=== PATIENT | female | born 1935 | race Caucasian/White ===

== ENCOUNTER 2021-05-28 19:11 | Emergency (ER) | payer MEDICARE ==
[~2021-05-28] VITALS: Ht 147.3 cm; Wt 60.0 kg
[~2021-05-28 19:11] MED LIST: ESOM20CA PO; LEVO125T5 PO; LEVO88TA4 PO; MECL-75 PO; METO25TA4 PO; MOME17SP5 NS; POTA-112 PO; RIVA20TA2 PO; VENL75TA2 PO
--- NOTE | 2021-05-28 19:32 | PHYS DOC ---
Past Medical History Past Medical History: A-Fib, CVA, GERD, Hypothyroid Past Surgical History: Other Additional Past Surgical Histo: HIP AND KNEE Smoking Status: Never Smoker Alcohol Use: None General Adult EDM: Chief Complaint: HYPERTENSION HPI: HPI: Patient is a 86 year old female with history of atrial fibrillation on Xarelto with recent stroke with residual right-sided weakness who presents with concerns of hypertension. Earlier today at approximately 4 AM had a severe headache that woke her from sleep. The headache slowly resolved over several hours. During the course of the headache she had a sensation of room spinning that has also resolved. She currently has no symptoms. She was visited by physical therapy for stroke recovery and her blood pressure was noted to be 190s/110s and she was instructed to visit the emergency department. She denies any worsening of R sided weakness, vision changes, facial droop, coordination difficulty, or sensory changes. Denies any chest pain or shortness of breath. Review of Systems: Review of Systems: Constitutional: Denies fever or chills. [] Eyes: Denies change in visual acuity. [] HENT: Denies nasal congestion or sore throat. [] Respiratory: Denies cough or shortness of breath. [] Cardiovascular: Denies chest pain or edema. [] GI: Denies abdominal pain, nausea, vomiting, bloody stools or diarrhea. [] : Denies dysuria. [] Musculoskeletal: Denies back pain or joint pain. [] Integument: Denies rash. [] Neurologic: Reports now resolved headache and dizziness. Psychiatric: Denies depression or anxiety. [] Heart Score: C/O Chest Pain: No Risk Factors: Risk Factors: DM, Current or recent (<one month) smoker, HTN, HLP, family history of CAD, obesity. Risk Scores: Score 0 - 3: 2.5% MACE over next 6 weeks - Discharge Home Score 4 - 6: 20.3% MACE over next 6 weeks - Admit for Clinical Observation Score 7 - 10: 72.7% MACE over next 6 weeks - Early Invasive Strategies Allergies: Allergies: Allergies Coded Allergies Type Severity Reaction Last Updated Verified rosuvastatin Allergy Unknown 04/18/21 Yes Physical Exam: PE: Constitutional: Well developed, well nourished, no acute distress, non-toxic appearance. [] HENT: Normocephalic, atraumatic, bilateral external ears normal, oropharynx moist, no oral exudates, nose normal. [] Eyes: PERRLA, EOMI, conjunctiva normal, no discharge. [] Neck: Normal range of motion, no tenderness, supple, no stridor. [] Cardiovascular:Heart rate regular rhythm, no murmur [] Lungs & Thorax: Bilateral breath sounds clear to auscultation [] Abdomen: Bowel sounds normal, soft, no tenderness, no masses, no pulsatile masses. [] Skin: Warm, dry, no erythema, no rash. [] Back: No tenderness, no CVA tenderness. [] Extremities: No tenderness, no cyanosis, no clubbing, ROM intact, no edema. [] Neurologic: Alert, oriented to person, place, time. Face is symmetric. Speech is normal. Cranial nerves III-XII intact. EOMI. Eyes easily cross midline. Visual glasgow intact. Very slight drift in the right upper extremity, no drift in left upper extremity. (Patient states this is her recent baseline) No drift in bilateral lower extremities No dysmetria with [id number] or [id number] testing. No dysarthria or aphasia Sensation equal bilaterally. No inattention or neglect Psychologic: Affect normal, judgement normal, mood normal. [] EKG: EKG: Sinus rhythm with PVCs. Rate 73. Normal OR and QRS intervals. QTc 429. No acute ischemic changes. [] Radiology/Procedures: Radiology/Procedures: [] Impression: [facility] [address] [place], [place] [id number] IMAGING REPORT Signed PATIENT: SANGITA RICARDO ACCOUNT: [id number] : 1935 LOCATION: ER AGE: 86 SEX: F EXAM STATUS: REG ER ORD. PHYSICIAN: SEAN DAVID MD REASON: HTN, headache, dizziness, on xarelto PROCEDURE: CT HEAD WO CONTRAST CT head without contrast PQRS statement: CT scans at this facility use dose reduction including either automated exposure control, iterative reconstructions, and /or weight based radiation dosing via mA and kV modification when appropriate to reduce radiation dose to as low as reasonably achievable. HISTORY: Hypertension, headache, dizziness, anticoagulated. COMPARISON: CT head April 18, 2021 FINDINGS: Mild streak artifact from the skull base across the tera and brainstem decreasing sensitivity is intact subtle abnormalities at this region. There is a chronic right basal ganglia lacunar ischemic infarct which is stable. Periventricular white matter hypoattenuating lesions similar to prior imaging likely sequela of chronic microvascular ischemic disease, although there is a possible new left frontal 8 mm white matter lesion on image 19 not apparent on the prior CT study. No intracranial hemorrhage, mass or hydrocephalus. Orbits, mastoids and bones are unremarkable. Sphenoid sinus fluid. IMPRESSION: 1. No intracranial hemorrhage, mass or hydrocephalus. 2. Subcentimeter hypoattenuating lesion of the left frontal periventricular white matter, not apparent on prior imaging from March 2021, could represent an acute or subacute small vessel ischemic infarct of the white matter. Acuity versus chronicity of this could be further assessed with MR imaging. 3. Chronic right basal ganglia infarct is stable. 4. Small volume of fluid within the right sphenoid sinus could represent sinusitis. Electronically signed by: Kana Dominique MD (05/28/2021 8:34 PM) [facility] DICTATED and SIGNED BY: KANA DOMINIQUE MD DATE: 05/28/[id number] 0 Course & Med Decision Making: Course & Med Decision Making Pertinent Labs and Imaging studies reviewed. (See chart for details) Patient is a 86-year-old female with history of atrial fibrillation on Xarelto, multiple CVAs most recently at the end of March with residual right-sided deficits who presents with concerns for hypertension (190s/110s at home). BP 168/91 here. She relays earlier today she had a severe headache with associated vertigo, that is now resolved. No recent head trauma. Will check CT scan to attempt to exclude spontaneous hemorrhage. She is well-appearing and neuro exam is as above with some mild right upper extremity weakness but otherwise intact, which patient states is her recent baseline. No chest pain or EKG changes to suggest hypertension related ischemia. No evidence of heart failure or hypertensive pulmonary edema. We will check a creatinine to rule out ZAC. -- Blood work unremarkable. CT head as above without hemorrhage. With negative plain CT and no pre-existing aneurysm on previous CTA feel that aneurysmal herald SAH bleed is exceedingly unlikely. CT also showed a left frontal hypoattenuating lesion that is in area consistent with her previous stroke. She has had no new stroke symptoms. Her PCP was contacted about her high pressures earlier today and has written for lisinopril 10 mg daily (she has not yet taken any) so I will not further adjust medications at this time. [id number] Laure Disclaimer: Laure Disclaimer: This electronic medical record was generated, in whole or in part, using a voice recognition dictation system. Departure Departure Impression: Primary Impression: Hypertension Additional Impression: Headache Disposition: HOME / SELF CARE / HOMELESS Condition: STABLE Referrals: UNKNOWN PCP NAME (PCP) Additional Instructions: Please continue to follow-up with your PCP regarding your blood pressure control. Please take your lisinopril 10 mg daily. You can take your first dose when you get home tonight. When you check your blood pressure please check it at the same time daily, take it in a seated position after giving yourself several minutes to rest. Keep a journal and take this to primary care office to help them get your blood pressure medications at the right doses. If you have any new severe headaches, chest pain, shortness of breath, vision changes, speech difficulty, facial droop, arm/leg weakness, or confusion please return to the emergency department immediately. SEAN DAVID MD May 28, 2021 19:32
[2021-05-28 20:05] LABS: BASO % 1 % (0-3); EOS # 0.2 x10^3/uL (0.0-0.7); EOS % 3 % (0-3); HEMATOCRIT 36.4 % (36.0-47.0); HEMOGLOBIN 11.8 g/dL (12.0-15.5); LYMPH # 2.7 x10^3/uL (1.0-4.8); LYMPH % 41 % (24-48); MEAN CORPUSCULAR HEMOGLOBIN 31 pg (25-35); MEAN CORPUSCULAR HGB CONC 33 g/dL (31-37); MEAN CORPUSCULAR VOLUME 94 fL (79-100); MONO # 0.6 x10^3/uL (0.0-1.1); MONO % 9 % (0-9); NEUT # 3.1 x10^3/uL (1.8-7.7); NEUT % 47 % (31-73); PLATELET COUNT 203 x10^3/uL (140-400); RED BLOOD COUNT 3.87 x10^6/uL (3.50-5.40); RED CELL DISTRIBUTION WIDTH 15.3 % (11.5-14.5); WHITE BLOOD COUNT 6.7 x10^3/uL (4.0-11.0)
[2021-05-28 20:18] LABS: CALCIUM 8.6 mg/dL (8.5-10.1); CREATININE 0.9 mg/dL (0.6-1.0); GFR 59.5; POTASSIUM 4.1 mmol/L (3.5-5.1)
--- NOTE | 2021-05-28 20:36 | RAD ---
CT head without contrast PQRS statement: CT scans at this facility use dose reduction including either automated exposure cont rol, iterative reconstructions, and /or weight based radiation dosing via mA and kV modification when appropriate to reduce radiation dose to as low as reasonably achievable. HISTORY: Hypertension, headache, dizziness, anticoagulated. COMPARISON: CT head April 18, 2021 FINDINGS: Mild streak artifact from the skull base across the tera and brainstem decreasing sensitivi ty is intact subtle abnormalities at this region. There is a chronic right basal ganglia lacunar isch emic infarct which is stable. Periventricular white matter hypoattenuating lesions similar to prior i maging likely sequela of chronic microvascular ischemic disease, although there is a possible new lef t frontal 8 mm white matter lesion on image 19 not apparent on the prior CT study. No intracranial he morrhage, mass or hydrocephalus. Orbits, mastoids and bones are unremarkable. Sphenoid sinus fluid. IMPRESSION: 1. No intracranial hemorrhage, mass or hydrocephalus. 2. Subcentimeter hypoattenuating lesion of the left frontal periventricular white matter, not apparen t on prior imaging from March 2021, could represent an acute or subacute small vessel ischemic inf arct of the white matter. Acuity versus chronicity of this could be further assessed with MR imaging. 3. Chronic right basal ganglia infarct is stable. 4. Small volume of fluid within the right sphenoid sinus could represent sinusitis. Electronically signed by: Ron Dominique MD (05/28/2021 8:34 PM) [facility]
[2021-05-28 21:53] VITALS: BP 182/77
--- NOTE | 2021-05-28 23:55 | EKG ---
[facility] [address] [place] [id number] Test Date: 2021-05-28 Test Time: 19:26:07 Pat Name: SANGITA RICARDO Department: Room: Gender: F Snap Attacher: : 1935 Requested By: SEAN DAVID Order Number: [id number] Reading MD: Collin Grfifin Measurements Intervals [place] Rate: 73 P: 0 ND: 152 QRS: 14 QRSD: 78 T: 10 QT: 386 QTc: 429 Interpretive Statements SINUS RHYTHM VENTRICULAR PREMATURE COMPLEX(ES) Electronically Signed On 05-30-2021 14:06:44 [employer] MANAGER by Collin Griffin
== END 2021-05-28 21:53 | disposition home or self-care (01) ==
LOC: ER 19:11
DX: I10 Essential (primary) hypertension (principal); R53.1 Weakness; R51.9 Headache, unspecified; I48.91 Unspecified atrial fibrillation; K21.9 Gastro-esophageal reflux disease without esophagitis; E03.9 Hypothyroidism, unspecified; Z86.73 Personal history of transient ischemic attack (TIA), and cerebral infarction without residual deficits; Z88.8 Allergy status to other drugs, medicaments and biological substances
CPT/HCPCS: 36415; 70450; 80048; 85025; 93005; 99285-25